=== PATIENT | male | born 1990 | race African-American/Black ===

== ENCOUNTER 2019-02-15 22:15 | Observation (INO) ==
[2019-02-15] MEDS ORDERED: KETOROLAC 30 MG/1 ML VIAL IV STA (22:41)
[2019-02-15 23:10] LABS: Basophils % 0.2 % (0.0-0.8); Eosinophils # 0.1 10*3/uL (0.0-0.87); Eosinophils % 0.8 % (0.00-10.9); Hemoglobin 13.6 GM/DL (14.0-18.0); Immature Granulocytes % 0.4 %; Immature Granulocytes Absolute 0.04 #; Lymphocytes # 3.1 10*3/uL (1.4-4.0); Lymphocytes % 28.9 % (21.2-54.2); Mean Corpuscular HGB Conc 33.2 GM/DL (32-36); Mean Corpuscular Volume 92.6 FL (87-102); Mean Platelet Volume 10.6 FL (9.6-12.0); Monocytes % 9.5 % (1.7-12.7); Neutrophils % 60.2 % (38.7-73.9); Platelet Count 176 T/CUMM (130-400); Red Blood Count 4.43 MC/CUMM (3.8-5.5); Red Cell Distribution Width 12.8 % (9.3-17.3); White Blood Count 10.7 T/CUMM (4-12)
[2019-02-15 23:25] LABS: Alanine Aminotransferase 19 U/L (16-61); Albumin 3.4 G/DL (3.4-5.0); Alkaline Phosphatase 114 U/L (45-117); Aspartate Amino Transferase 14 U/L (0-37); Bilirubin,Total < 0.39 MG/DL (0.2-1.0); Blood Urea Nitrogen 13 MG/DL (7-18); Calcium 9.1 MG/DL (8.5-10.1); Estimated Glom Filtration Rate 105 ML/MIN; Glucose 79 MG/DL (74-106); Osmolality,Calculated 281.1 MOS/KG (273-304); Total Protein 7.4 G/DL (6.4-8.3)
[2019-02-16] MEDS ORDERED: VANCOMYCIN INJ 1,000 MG in SODIUM CHLORIDE 0.9% 250 ML IV STA (00:01)
[2019-02-16] MEDS ORDERED: ONDANSETRON 4 MG/2 ML VIAL IV PRN (00:01)
[2019-02-16] MEDS ORDERED: CEFEPIME 2,000 MG in SODIUM CHLORIDE 0.9% 100 ML IV STA ×2 (00:03)
[2019-02-16] MEDS: DEXTROSE 5% LACTATED RINGERS 1,000 ML IV SCH ×3 (02:00→21:14)
[2019-02-16] MEDS ORDERED: VANCOMYCIN INJ 1,250 MG in SODIUM CHLORIDE 0.9% 250 ML IV SCH (07:30)
[2019-02-16] MEDS: MORPHINE 4 MG/1 ML VIAL IV PRN ×3 (08:28→23:02)
[2019-02-16] MEDS: PIPERACILLIN/TAZOBACTAM 3,375 MG in SODIUM CHLORIDE 0.9% 100 ML IV SCH ×2 (08:29→17:44)
[2019-02-16] MEDS ORDERED: VANCOMYCIN INJ 1,750 MG in SODIUM CHLORIDE 0.9% 500 ML IV ONE ×2 (08:30→09:00)
[2019-02-16] MEDS: PANTOPRAZOLE 40 MG VIAL IV SCH (08:57)
[2019-02-16 09:03] LABS: HIV Antigen/Antibody Result Nonreactive (Nonreactive)
[2019-02-16 17:14] LABS: Hepatitis B Core IgM Quant 0.11 Index; Hepatitis B Surface Ag Quant < 0.10 Index; Hepatitis B Surface Ag Result Negative (Negative); Hepatitis C Virus Ab Quant < 0.02 Index; Hepatitis C Virus Ab Result Negative (Negative)
[2019-02-17] MEDS: PIPERACILLIN/TAZOBACTAM 3,375 MG in SODIUM CHLORIDE 0.9% 100 ML IV SCH ×2 (00:59→13:27)
[2019-02-17] MEDS: DEXTROSE 5% LACTATED RINGERS 1,000 ML IV SCH ×2 (03:12→11:16)
[2019-02-17 05:07] LABS: Basophils % 0.1 % (0.0-0.8); Eosinophils # 0.1 10*3/uL (0.0-0.87); Eosinophils % 0.6 % (0.00-10.9); Hematocrit 37.7 VOL% (42.0-52.0); Hemoglobin 12.5 GM/DL (14.0-18.0); Immature Granulocytes % 0.4 %; Immature Granulocytes Absolute 0.04 #; Lymphocytes # 2.2 10*3/uL (1.4-4.0); Lymphocytes % 19.9 % (21.2-54.2); Mean Corpuscular HGB Conc 33.2 GM/DL (32-36); Mean Platelet Volume 11.2 FL (9.6-12.0); Monocytes % 10.6 % (1.7-12.7); Neutrophils % 68.4 % (38.7-73.9); Platelet Count 174 T/CUMM (130-400); Red Blood Count 4.19 MC/CUMM (3.8-5.5); Red Cell Distribution Width 12.8 % (9.3-17.3); White Blood Count 11.1 T/CUMM (4-12)
[2019-02-17 05:44] LABS: Calcium 8.6 MG/DL (8.5-10.1); Osmolality,Calculated 278.3 MOS/KG (273-304)
[2019-02-17 07:08] LABS: Sedimentation Rate-Westergren 49 MM/HR (0-15)
[2019-02-17] MEDS: PANTOPRAZOLE 40 MG VIAL IV SCH (08:37)
[2019-02-17] MEDS: VANCOMYCIN INJ 1,500 MG in SODIUM CHLORIDE 0.9% 500 ML IV SCH ×2 (08:37→20:35)
[2019-02-17] MEDS: MORPHINE 4 MG/1 ML VIAL IV PRN (13:27)
[2019-02-18] MEDS: PIPERACILLIN/TAZOBACTAM 3,375 MG in SODIUM CHLORIDE 0.9% 100 ML IV SCH ×2 (01:47→14:15)
[2019-02-18] MEDS: DEXTROSE 5% LACTATED RINGERS 1,000 ML IV SCH ×3 (01:47→10:21)
[2019-02-18] MEDS ORDERED: LIDOCAINE 1%/EPI INJ 20 ML VIAL ONE (07:37)
[2019-02-18] MEDS ORDERED: BUPIVACAINE 0.5% /EPI 10 ML VIAL ONE (07:37)
[2019-02-18] MEDS: PANTOPRAZOLE 40 MG VIAL IV SCH (09:00)
[2019-02-18] MEDS ORDERED: HYDROmorphone 2 MG/1 ML VIAL ONE (09:17)
[2019-02-18] MEDS: HYDROmorphone 2 MG/1 ML VIAL IV PRN ×4 (09:20→09:35)
[2019-02-18] MEDS ORDERED: PROPOFOL 200 MG/20 ML VIAL IV ONE (09:50)
[2019-02-18] MEDS ORDERED: fentaNYL 100 MCG/2 ML VIAL ONE (09:50)
[2019-02-18] MEDS ORDERED: MIDAZOLAM 2 MG/2 ML VIAL ONE (09:50)
[2019-02-18] MEDS ORDERED: LIDOCAINE 2% 5 ML VIAL ONE (09:50)
[2019-02-18] MEDS: VANCOMYCIN INJ 1,500 MG in SODIUM CHLORIDE 0.9% 500 ML IV SCH ×2 (10:00→22:58)
[2019-02-18] MEDS: MORPHINE 4 MG/1 ML VIAL IV PRN (20:21)
[2019-02-19] MEDS: PIPERACILLIN/TAZOBACTAM 3,375 MG in SODIUM CHLORIDE 0.9% 100 ML IV SCH ×2 (03:33→05:14)
[2019-02-19 07:47] VITALS: BP 148/94
[2019-02-19] MEDS: PANTOPRAZOLE 40 MG VIAL IV SCH (08:29)
[2019-02-19] MEDS ORDERED: SULFAMETHOX/TRIMETHOPRIM 800-160 MG TABLET PO SCH (10:30)
[2019-02-19] MEDS: VANCOMYCIN INJ 1,500 MG in SODIUM CHLORIDE 0.9% 500 ML IV SCH (11:39)
== END 2019-02-19 12:00 | disposition home or self-care (01) ==
LOC: N.ED 22:15 → N.EDINP 22:15 → N.3E 02-16 00:27
PROVIDERS: ADMIT Student in an Organized Health Care Education/Training Program; ATTEND Student in an Organized Health Care Education/Training Program

== ENCOUNTER 2021-09-10 19:24 | Inpatient (IN) ==
[2021-09-10 19:56] LABS: Basophils % 0.1 % (0.0-0.8); Eosinophils # 0.2 10*3/uL (0.0-0.87); Eosinophils % 1.9 % (0.00-10.9); Hematocrit 32.8 VOL% (42.0-52.0); Hemoglobin 10.6 GM/DL (14.0-18.0); Immature Granulocytes Absolute 0.34 #; Lymphocytes # 1.3 10*3/uL (1.4-4.0); Lymphocytes % 15.4 % (21.2-54.2); Mean Corpuscular HGB Conc 32.3 GM/DL (32-36); Mean Corpuscular Volume 90.9 FL (87-102); Mean Platelet Volume 10.4 FL (9.6-12.0); Monocytes # 0.7 10*3/uL (0.11-0.8); Monocytes % 8.3 % (1.7-12.7); Neutrophils % 70.3 % (38.7-73.9); Platelet Count 263 T/CUMM (130-400); Red Blood Count 3.61 MC/CUMM (3.8-5.5); Red Cell Distribution Width 14.5 % (9.3-17.3); White Blood Count 8.4 T/CUMM (4-12)
[2021-09-10 20:16] LABS: Alanine Aminotransferase 38 U/L (16-61); Albumin 1.6 G/DL (3.4-5.0); Alkaline Phosphatase 313 U/L (45-117); Aspartate Amino Transferase 67 U/L (0-37); Bilirubin,Total < 0.39 MG/DL (0.20-1.00); Blood Urea Nitrogen 21 MG/DL (7-18); Carbon Dioxide 24 MMOL/L (21-32); Chloride 109 MMOL/L (98-107); Glucose 83 MG/DL (74-106); Osmolality,Calculated 278.5 MOS/KG (273-304); Potassium 5.1 MMOL/L (3.5-5.1); Sodium 139 MMOL/L (136-145)
[2021-09-10] MEDS ORDERED: ONDANSETRON 4 MG/2 ML VIAL IV STA (23:11)
[2021-09-10] MEDS ORDERED: SODIUM CHLORIDE 0.9% 1,000 ML IV STA (23:11)
[2021-09-11 00:04] LABS: Hepatitis B Core IgM Quant 0.06 Index; Hepatitis B Surface Ag Quant < 0.10 Index; Hepatitis B Surface Ag Result Non-Reactive (NonReactive); Hepatitis C Virus Ab Quant 0.06 Index; Hepatitis C Virus Ab Result Non-Reactive (NonReactive)
[2021-09-11] MEDS ORDERED: SIMETHICONE CHEW 125 MG TABLET PO PRN (00:39)
[2021-09-11] MEDS ORDERED: ONDANSETRON 4 MG/2 ML VIAL IV PRN (00:39)
[2021-09-11] MEDS ORDERED: GLUCAGON 1 MG VIAL IM PRN (00:39)
[2021-09-11] MEDS ORDERED: ACETAMINOPHEN 325 MG TABLET PO PRN (00:39)
[2021-09-11] MEDS ORDERED: DEXTROSE 10% 250 ML BAG IV PRN (01:16)
[2021-09-11] MEDS: PANTOPRAZOLE 40 MG VIAL IV SCH ×2 (03:57→10:44)
[2021-09-11] MEDS: SODIUM CHLORIDE 0.9% 1,000 ML IV SCH ×2 (03:57→16:23)
[2021-09-11 04:11] LABS: Basophils % 0.1 % (0.0-0.8); Eosinophils # 0.1 10*3/uL (0.0-0.87); Eosinophils % 1.2 % (0.00-10.9); Hematocrit 28.9 VOL% (42.0-52.0); Hemoglobin 9.3 GM/DL (14.0-18.0); Immature Granulocytes % 3.5 %; Immature Granulocytes Absolute 0.29 #; Lymphocytes # 1.5 10*3/uL (1.4-4.0); Lymphocytes % 17.7 % (21.2-54.2); Mean Corpuscular HGB Conc 32.2 GM/DL (32-36); Mean Corpuscular Volume 90.3 FL (87-102); Mean Platelet Volume 10.3 FL (9.6-12.0); Monocytes # 0.5 10*3/uL (0.11-0.8); Neutrophils % 71.5 % (38.7-73.9); Platelet Count 238 T/CUMM (130-400); Red Cell Distribution Width 14.6 % (9.3-17.3); White Blood Count 8.4 T/CUMM (4-12)
[2021-09-11 04:32] LABS: Eosinophils 1 % (0-10); Lymphocytes 12 % (20-55); Platelet Estimate Normal; Total Cells Counted 100
[2021-09-11 04:36] LABS: Calcium 7.9 MG/DL (8.5-10.1); Osmolality,Calculated 280.4 MOS/KG (273-304); Potassium 4.4 MMOL/L (3.5-5.1); Thyroid Stimulating Hormone 2.03 uIU/ml (0.358-3.74)
[2021-09-11 06:39] LABS: Bacteria,Urine Occasional /HPF (Few); Bilirubin,Urine Negative (Negative); Blood, Urine Trace mg/dL (Negative); Glucose,Urine (UA) Negative (Negative); Ketones,Urine Negative (Negative); Mucus,Urine Occasional /LPF (Occasional); Nitrite,Urine Negative (Negative); Protein,Urine >=300 mg/dL (Negative); RBC,Urine 1 /HPF (0-4); Squamous Epithelial Cell,Urine Occasional /HPF (0-10); Urine Appearance Clear (Clear); Urine Color Yellow (Yellow); Urine Specific Gravity 1.025 (1.001-1.035); Urine Urobilinogen 0.2 eU/dL (<2.0); Urine pH 7.5 (4.5-8.0)
[2021-09-11] MEDS ORDERED: ENOXAPARIN 40 MG/0.4 ML SYRINGE SUBCUT SCH (09:00)
[2021-09-11] MEDS: guaiFENesin/DM ER 600-30 MG TABLET PO SCH ×2 (10:44→22:40)
[2021-09-11] MEDS ORDERED: LIDOCAINE 100 MG/5 ML SYRINGE ONE (14:29)
[2021-09-11] MEDS ORDERED: propofoL 200 MG/20 ML VIAL IV ONE (14:29)
[2021-09-11] MEDS ORDERED: FLUCONAZOLE INJ 200 MG/100 ML PREMIX IV SCH (15:00)
[2021-09-11] MEDS: PANTOPRAZOLE INJ 200 MG in SODIUM CHLORIDE 0.9% 250 ML IV SCH (16:23)
[2021-09-11] MEDS: METOCLOPRAMIDE 10 MG/2 ML VIAL IV SCH (17:28)
[2021-09-11] MEDS: MORPHINE 2 MG/1 ML SYRINGE IV PRN (22:30)
[2021-09-11] MEDS: COLESTIPOL 1 GM TABLET PO SCH (22:40)
[2021-09-12] MEDS: SODIUM CHLORIDE 0.9% 1,000 ML IV SCH ×4 (00:01→23:14)
[2021-09-12] MEDS: METOCLOPRAMIDE 10 MG/2 ML VIAL IV SCH ×5 (00:16→23:14)
[2021-09-12 06:02] LABS: Basophils % 0.1 % (0.0-0.8); Eosinophils % 0.3 % (0.00-10.9); Hematocrit 27.6 VOL% (42.0-52.0); Immature Granulocytes % 4.3 %; Immature Granulocytes Absolute 0.37 #; Lymphocytes # 1.4 10*3/uL (1.4-4.0); Lymphocytes % 16.1 % (21.2-54.2); Mean Corpuscular HGB Conc 32.6 GM/DL (32-36); Mean Corpuscular Volume 90.5 FL (87-102); Mean Platelet Volume 10.8 FL (9.6-12.0); Monocytes # 0.8 10*3/uL (0.11-0.8); Monocytes % 8.9 % (1.7-12.7); Neutrophils % 70.3 % (38.7-73.9); Platelet Count 235 T/CUMM (130-400); Red Blood Count 3.05 MC/CUMM (3.8-5.5); Red Cell Distribution Width 14.5 % (9.3-17.3); White Blood Count 8.6 T/CUMM (4-12)
[2021-09-12 06:09] LABS: Alanine Aminotransferase 25 U/L (16-61); Albumin 1.1 G/DL (3.4-5.0); Alkaline Phosphatase 228 U/L (45-117); Aspartate Amino Transferase 39 U/L (0-37); Bilirubin,Total < 0.39 MG/DL (0.20-1.00); Blood Urea Nitrogen 23 MG/DL (7-18); Calcium 7.7 MG/DL (8.5-10.1); Carbon Dioxide 23 MMOL/L (21-32); Chloride 110 MMOL/L (98-107); Glucose 99 MG/DL (74-106); Osmolality,Calculated 278.7 MOS/KG (273-304); Potassium 4.3 MMOL/L (3.5-5.1); Sodium 138 MMOL/L (136-145); Total Protein 5.4 G/DL (6.4-8.2)
[2021-09-12 06:14] LABS: Lymphocytes 11 % (20-55); Platelet Estimate Normal; Total Cells Counted 100
[2021-09-12] MEDS: COLESTIPOL 1 GM TABLET PO SCH ×2 (10:17→21:21)
[2021-09-12] MEDS: cefTRIAXone 2,000 MG in SODIUM CHLORIDE 0.9% 100 ML IV SCH (10:17)
[2021-09-12] MEDS: oxyCODONE/ACETAMINOPHEN 5-325 MG TABLET PO PRN (10:17)
[2021-09-12] MEDS: guaiFENesin/DM ER 600-30 MG TABLET PO SCH ×2 (10:18→21:21)
[2021-09-12] MEDS ORDERED: FLUCONAZOLE INJ 400 MG/200 ML PREMIX IV SCH (13:00)
[2021-09-12] MEDS: FLUCONAZOLE INJ 400 MG/200 ML PREMIX IV SCH (13:35)
[2021-09-12] MEDS: PANTOPRAZOLE INJ 200 MG in SODIUM CHLORIDE 0.9% 250 ML IV SCH (17:28)
[2021-09-13 04:49] LABS: Eosinophils # 0.1 10*3/uL (0.0-0.87); Eosinophils % 0.8 % (0.00-10.9); Hematocrit 22.6 VOL% (42.0-52.0); Hemoglobin 7.3 GM/DL (14.0-18.0); Immature Granulocytes % 2.9 %; Immature Granulocytes Absolute 0.18 #; Lymphocytes % 15.5 % (21.2-54.2); Mean Corpuscular HGB Conc 32.3 GM/DL (32-36); Mean Corpuscular Volume 90.4 FL (87-102); Mean Platelet Volume 10.9 FL (9.6-12.0); Monocytes # 0.7 10*3/uL (0.11-0.8); Monocytes % 10.6 % (1.7-12.7); Neutrophils % 70.2 % (38.7-73.9); Platelet Count 199 T/CUMM (130-400); White Blood Count 6.3 T/CUMM (4-12)
[2021-09-13] MEDS: METOCLOPRAMIDE 10 MG/2 ML VIAL IV SCH ×2 (05:06→12:18)
[2021-09-13 05:14] LABS: Alanine Aminotransferase 22 U/L (16-61); Alkaline Phosphatase 179 U/L (45-117); Aspartate Amino Transferase 39 U/L (0-37); Bilirubin,Total < 0.39 MG/DL (0.20-1.00); Blood Urea Nitrogen 31 MG/DL (7-18); Calcium 7.9 MG/DL (8.5-10.1); Carbon Dioxide 22 MMOL/L (21-32); Chloride 107 MMOL/L (98-107); Glucose 81 MG/DL (74-106); Osmolality,Calculated 273.2 MOS/KG (273-304); Potassium 4.5 MMOL/L (3.5-5.1); Sodium 134 MMOL/L (136-145); Total Protein 5.1 G/DL (6.4-8.2)
[2021-09-13 05:40] LABS: Anisocytosis 1+; Band Neutrophils 21 % (0-10); Lymphocytes 11 % (20-55); Macrocytosis Slight; Ovalocytes Few; Platelet Estimate Normal; Total Cells Counted 100
[2021-09-13] MEDS: COLESTIPOL 1 GM TABLET PO SCH (09:13)
[2021-09-13] MEDS: guaiFENesin/DM ER 600-30 MG TABLET PO SCH ×2 (09:13→21:02)
[2021-09-13] MEDS: oxyCODONE/ACETAMINOPHEN 5-325 MG TABLET PO PRN ×2 (09:13→21:05)
[2021-09-13] MEDS: SODIUM CHLORIDE 0.9% 1,000 ML IV SCH ×2 (09:57→15:34)
[2021-09-13] MEDS: cefTRIAXone 2,000 MG in SODIUM CHLORIDE 0.9% 100 ML IV SCH (12:17)
[2021-09-13] MEDS: FLUCONAZOLE INJ 400 MG/200 ML PREMIX IV SCH (14:52)
[2021-09-13] MEDS: METOCLOPRAMIDE 10 MG/10 ML UDCUP PO SCH ×2 (16:44→21:02)
[2021-09-13] MEDS: PANTOPRAZOLE 40 MG TABLET PO SCH (18:04)
[2021-09-14 04:48] LABS: Basophils % 0.2 % (0.0-0.8); Eosinophils # 0.1 10*3/uL (0.0-0.87); Eosinophils % 2.5 % (0.00-10.9); Hematocrit 22.1 VOL% (42.0-52.0); Hemoglobin 7.1 GM/DL (14.0-18.0); Immature Granulocytes % 2.5 %; Immature Granulocytes Absolute 0.13 #; Lymphocytes % 19.4 % (21.2-54.2); Mean Corpuscular HGB Conc 32.1 GM/DL (32-36); Mean Corpuscular Volume 90.9 FL (87-102); Mean Platelet Volume 10.6 FL (9.6-12.0); Monocytes # 0.7 10*3/uL (0.11-0.8); Monocytes % 12.6 % (1.7-12.7); Neutrophils % 62.8 % (38.7-73.9); Platelet Count 214 T/CUMM (130-400); Red Blood Count 2.43 MC/CUMM (3.8-5.5); Red Cell Distribution Width 13.8 % (9.3-17.3); White Blood Count 5.2 T/CUMM (4-12)
[2021-09-14] MEDS ORDERED: SODIUM CHLORIDE 0.9% 1,000 ML IV PRN (07:06)
[2021-09-14] MEDS: METOCLOPRAMIDE 10 MG/10 ML UDCUP PO SCH ×4 (07:08→22:21)
[2021-09-14] MEDS: PANTOPRAZOLE 40 MG TABLET PO SCH ×2 (07:08→20:03)
[2021-09-14] MEDS: oxyCODONE/ACETAMINOPHEN 5-325 MG TABLET PO PRN ×2 (07:09→17:45)
[2021-09-14] MEDS ORDERED: FLUCONAZOLE 100 MG TABLET PO SCH (09:00)
[2021-09-14] MEDS: guaiFENesin/DM ER 600-30 MG TABLET PO SCH ×2 (09:41→22:22)
[2021-09-14] MEDS: FLUCONAZOLE INJ 400 MG/200 ML PREMIX IV SCH (09:42)
[2021-09-14] MEDS: SODIUM CHLORIDE 0.9% 1,000 ML IV SCH ×2 (09:43→22:50)
[2021-09-14 15:19] LABS: Folate 7.21 NG/ML (5.38-24.0)
[2021-09-14 18:35] LABS: % Iron Saturation 21.3 % (18-50)
[2021-09-15] MEDS: oxyCODONE/ACETAMINOPHEN 5-325 MG TABLET PO PRN ×3 (01:13→19:08)
[2021-09-15 05:56] LABS: Basophils % 0.2 % (0.0-0.8); Eosinophils # 0.1 10*3/uL (0.0-0.87); Eosinophils % 2.7 % (0.00-10.9); Hematocrit 27.8 VOL% (42.0-52.0); Hemoglobin 9.2 GM/DL (14.0-18.0); Immature Granulocytes % 3.7 %; Immature Granulocytes Absolute 0.19 #; Lymphocytes # 0.8 10*3/uL (1.4-4.0); Lymphocytes % 15.5 % (21.2-54.2); Mean Corpuscular HGB Conc 33.1 GM/DL (32-36); Mean Corpuscular Volume 88.8 FL (87-102); Mean Platelet Volume 10.4 FL (9.6-12.0); Monocytes # 0.4 10*3/uL (0.11-0.8); Monocytes % 8.3 % (1.7-12.7); Neutrophils % 69.6 % (38.7-73.9); Platelet Count 228 T/CUMM (130-400); Red Blood Count 3.13 MC/CUMM (3.8-5.5); Red Cell Distribution Width 14.3 % (9.3-17.3); White Blood Count 5.2 T/CUMM (4-12)
[2021-09-15 06:05] LABS: Calcium 8.2 MG/DL (8.5-10.1); Osmolality,Calculated 274.8 MOS/KG (273-304); Potassium 4.1 MMOL/L (3.5-5.1)
[2021-09-15 06:24] LABS: Eosinophils 1 % (0-10); Lymphocytes 12 % (20-55); Platelet Estimate Adequate; Total Cells Counted 100
[2021-09-15] MEDS: SODIUM CHLORIDE 0.9% 1,000 ML IV SCH ×3 (06:51→18:32)
[2021-09-15] MEDS: PANTOPRAZOLE 40 MG TABLET PO SCH ×2 (07:01→18:20)
[2021-09-15] MEDS: METOCLOPRAMIDE 10 MG/10 ML UDCUP PO SCH ×4 (07:01→20:28)
[2021-09-15] MEDS: guaiFENesin/DM ER 600-30 MG TABLET PO SCH ×2 (09:25→20:30)
[2021-09-15] MEDS: FLUCONAZOLE INJ 400 MG/200 ML PREMIX IV SCH (09:27)
[2021-09-15] MEDS: CHOLECALCIFEROL 5,000 UNIT TABLET PO SCH (12:00)
[2021-09-15] MEDS ORDERED: POLYETHYLENE GLYCOL POWDER 17 GM PACK PO PRN (12:55)
[2021-09-15] MEDS: MORPHINE 2 MG/1 ML SYRINGE IV PRN (21:47)
[2021-09-15 21:48] LABS: Total Protein 24 Hr Ur Result 7854 MG/24HR (0-149.1); Total Volume,Urine 2550 ML (400-2000)
[2021-09-16] MEDS: oxyCODONE/ACETAMINOPHEN 5-325 MG TABLET PO PRN ×4 (02:13→23:02)
[2021-09-16] MEDS: METOCLOPRAMIDE 10 MG/10 ML UDCUP PO SCH ×4 (06:58→20:08)
[2021-09-16] MEDS: PANTOPRAZOLE 40 MG TABLET PO SCH ×2 (06:58→20:08)
[2021-09-16] MEDS: SODIUM CHLORIDE 0.9% 1,000 ML IV SCH ×3 (07:07→20:10)
[2021-09-16] MEDS: FERRIC GLUCONATE COMPLEX 125 MG in SODIUM CHLORIDE 0.9% 100 ML IV SCH (08:53)
[2021-09-16] MEDS: FLUCONAZOLE INJ 400 MG/200 ML PREMIX IV SCH (08:54)
[2021-09-16] MEDS: guaiFENesin/DM ER 600-30 MG TABLET PO SCH ×2 (08:54→20:08)
[2021-09-16] MEDS: CHOLECALCIFEROL 5,000 UNIT TABLET PO SCH (08:54)
[2021-09-16 12:06] LABS: Mitochondrial Antibody (M2) <0.1 U
[2021-09-16 20:03] LABS: % CD4 (T Cells) 7 % (32-64); % CD8 (T Cells) 73 % (15-40); 4/8 Ratio 0.1 (>=0.9)
[2021-09-16] MEDS: AMOXICILLIN 500 MG CAPSULE PO SCH (20:08)
[2021-09-16] MEDS: CLARITHROMYCIN 500 MG TABLET PO SCH (20:08)
[2021-09-17] MEDS: SODIUM CHLORIDE 0.9% 1,000 ML IV SCH (03:11)
[2021-09-17] MEDS: oxyCODONE/ACETAMINOPHEN 5-325 MG TABLET PO PRN ×2 (04:34→10:52)
[2021-09-17 04:46] LABS: Basophils % 0.2 % (0.0-0.8); Eosinophils # 0.1 10*3/uL (0.0-0.87); Eosinophils % 1.7 % (0.00-10.9); Hematocrit 28.4 VOL% (42.0-52.0); Hemoglobin 9.3 GM/DL (14.0-18.0); Immature Granulocytes % 5.3 %; Immature Granulocytes Absolute 0.28 #; Lymphocytes % 19.8 % (21.2-54.2); Mean Corpuscular HGB Conc 32.7 GM/DL (32-36); Mean Corpuscular Volume 90.4 FL (87-102); Mean Platelet Volume 10.4 FL (9.6-12.0); Monocytes # 0.8 10*3/uL (0.11-0.8); Monocytes % 15.8 % (1.7-12.7); Neutrophils % 57.2 % (38.7-73.9); Platelet Count 213 T/CUMM (130-400); Red Blood Count 3.14 MC/CUMM (3.8-5.5); Red Cell Distribution Width 14.5 % (9.3-17.3); White Blood Count 5.3 T/CUMM (4-12)
[2021-09-17 05:13] LABS: Eosinophils 2 % (0-10); Lymphocytes 15 % (20-55); Total Cells Counted 100
[2021-09-17 05:14] LABS: Platelet Estimate Normal
[2021-09-17] MEDS: FERRIC GLUCONATE COMPLEX 125 MG in SODIUM CHLORIDE 0.9% 100 ML IV SCH (08:25)
[2021-09-17] MEDS: FLUCONAZOLE INJ 400 MG/200 ML PREMIX IV SCH (08:25)
[2021-09-17] MEDS: AMOXICILLIN 500 MG CAPSULE PO SCH (08:26)
[2021-09-17] MEDS: PANTOPRAZOLE 40 MG TABLET PO SCH (08:26)
[2021-09-17] MEDS: METOCLOPRAMIDE 10 MG/10 ML UDCUP PO SCH ×2 (08:26→12:46)
[2021-09-17] MEDS: guaiFENesin/DM ER 600-30 MG TABLET PO SCH (08:26)
[2021-09-17] MEDS: CHOLECALCIFEROL 5,000 UNIT TABLET PO SCH (08:26)
[2021-09-17] MEDS: CLARITHROMYCIN 500 MG TABLET PO SCH (08:26)
[2021-09-17] MEDS: MORPHINE 2 MG/1 ML SYRINGE IV PRN (08:30)
[2021-09-17 12:41] VITALS: BP 151/105
== END 2021-09-17 14:33 | disposition home or self-care (01) | DRG 893 ==
LOC: N.ED 19:24 → SUATTDRO 09-11 00:39 → N.EDINP 09-11 00:39 → N.5E 09-11 13:16
PROVIDERS: ADMIT Internal Medicine; ATTEND Internal Medicine

== ENCOUNTER 2021-09-19 08:36 | Inpatient (IN) ==
[2021-09-19] MEDS ORDERED: SODIUM CHLORIDE 0.9% 1,000 ML IV STA ×2 (09:11→11:30)
[2021-09-19 09:30] LABS: Basophils % 0.2 % (0.0-0.8); Eosinophils # 0.1 10*3/uL (0.0-0.87); Eosinophils % 0.8 % (0.00-10.9); Hemoglobin 9.8 GM/DL (14.0-18.0); Immature Granulocytes % 6.3 %; Immature Granulocytes Absolute 0.39 #; Lymphocytes # 1.1 10*3/uL (1.4-4.0); Lymphocytes % 17.7 % (21.2-54.2); Mean Corpuscular HGB Conc 32.7 GM/DL (32-36); Mean Corpuscular Volume 90.1 FL (87-102); Mean Platelet Volume 9.8 FL (9.6-12.0); Monocytes # 0.4 10*3/uL (0.11-0.8); Monocytes % 6.9 % (1.7-12.7); Neutrophils % 68.1 % (38.7-73.9); Platelet Count 320 T/CUMM (130-400); Red Blood Count 3.33 MC/CUMM (3.8-5.5); Red Cell Distribution Width 14.7 % (9.3-17.3); White Blood Count 6.2 T/CUMM (4-12)
[2021-09-19] MEDS ORDERED: AZITHROMYCIN INJ 500 MG in SODIUM CHLORIDE 0.9% 250 ML IV STA (09:30)
[2021-09-19] MEDS ORDERED: HYDROmorphone 1 MG/1 ML SYRINGE IV STA ×2 (09:30→10:36)
[2021-09-19] MEDS ORDERED: ONDANSETRON 4 MG/2 ML VIAL IV ONE (09:30)
[2021-09-19] MEDS ORDERED: cefTRIAXone 1,000 MG in SODIUM CHLORIDE 0.9% 100 ML IV STA (09:30)
[2021-09-19 09:51] LABS: Alanine Aminotransferase 38 U/L (16-61); Albumin 1.1 G/DL (3.4-5.0); Alkaline Phosphatase 725 U/L (45-117); Aspartate Amino Transferase 51 U/L (0-37); Bilirubin,Total < 0.39 MG/DL (0.20-1.00); Blood Urea Nitrogen 22 MG/DL (7-18); Calcium 8.2 MG/DL (8.5-10.1); Carbon Dioxide 24 MMOL/L (21-32); Chloride 109 MMOL/L (98-107); Glucose 88 MG/DL (74-106); Osmolality,Calculated 276.7 MOS/KG (273-304); Sodium 138 MMOL/L (136-145); Total Protein 6.6 G/DL (6.4-8.2)
[2021-09-19 09:58] LABS: Band Neutrophils 2 % (0-10); Eosinophils 1 % (0-10); Lymphocytes 12 % (20-55); Total Cells Counted 100
[2021-09-19] MEDS ORDERED: ONDANSETRON 4 MG/2 ML VIAL IV STA (10:37)
[2021-09-19] MEDS ORDERED: ZALEPLON 5 MG CAPSULE PO PRN (11:24)
[2021-09-19] MEDS ORDERED: DOCUSATE SODIUM 100 MG CAPSULE PO PRN (11:24)
[2021-09-19] MEDS ORDERED: ALUMINUM/MAGNES/SIMETH MAX STR 30 ML UDCUP PO PRN (11:24)
[2021-09-19] MEDS ORDERED: guaiFENesin/DM ER 600-30 MG TABLET PO PRN (11:24)
[2021-09-19] MEDS ORDERED: ONDANSETRON 4 MG/2 ML VIAL IV PRN (11:24)
[2021-09-19] MEDS ORDERED: ACETAMINOPHEN 325 MG TABLET PO PRN (11:24)
[2021-09-19] MEDS ORDERED: diphenhydrAMINE CAP 25 MG CAPSULE PO PRN (11:24)
[2021-09-19] MEDS ORDERED: FLUCONAZOLE INJ 400 MG/200 ML PREMIX IV SCH (11:30)
[2021-09-19] MEDS: SODIUM CHLORIDE 0.9% 1,000 ML IV SCH ×2 (11:50→19:58)
[2021-09-19] MEDS ORDERED: FLUCONAZOLE INJ 400 MG/200 ML PREMIX IV ONE (12:00)
[2021-09-19 12:09] LABS: Hyaline Casts,Urine 1 /LPF (0-3); RBC,Urine 4 /HPF (0-4); Squamous Epithelial Cell,Urine Occasional /HPF (0-10)
[2021-09-19 12:10] LABS: Urine Appearance Clear (Clear); Urine Color Yellow (Yellow)
[2021-09-19 12:11] LABS: Bilirubin,Urine Negative (Negative); Blood, Urine Trace mg/dL (Negative); Glucose,Urine (UA) Negative (Negative); Ketones,Urine Negative (Negative); Nitrite,Urine Negative (Negative); Protein,Urine >=300 mg/dL (Negative); Urine Specific Gravity 1.025 (1.001-1.035)
[2021-09-19 12:14] LABS: Barbiturates Screen,Urine Negative (Negative); Benzodiazepines Screen,Urine Negative (Negative); Cannabinoid Screen,Urine Positive (Negative); Opiate Screen,Urine Positive (Negative); Phencyclidine Screen,Urine Negative (Negative)
[2021-09-19] MEDS: ENOXAPARIN 40 MG/0.4 ML SYRINGE SUBCUT SCH (12:50)
[2021-09-19] MEDS ORDERED: MAGNESIUM SULF RIDER 2 GM/50 ML PREMIX IV STA (12:58)
[2021-09-19] MEDS ORDERED: METOPROLOL TARTRATE 5 MG/5 ML VIAL IV STA (12:59)
[2021-09-19] MEDS: METOPROLOL TARTRATE 5 MG/5 ML VIAL IV PRN ×2 (13:07→16:30)
[2021-09-19] MEDS: ALBUTEROL/IPRATROPIUM 3 ML NEB RESP TX SCH ×2 (14:20→19:33)
[2021-09-19] MEDS: VANCOMYCIN INJ 1,000 MG in SODIUM CHLORIDE 0.9% 250 ML IV SCH (15:00)
[2021-09-19] MEDS ORDERED: CLORAZEPATE 3.75 MG TABLET PO PRN (15:29)
[2021-09-19] MEDS: PIPERACILLIN/TAZOBACTAM 3,375 MG in SODIUM CHLORIDE 0.9% 100 ML IV SCH ×2 (17:20→17:48)
[2021-09-19] MEDS ORDERED: hydrALAZINE 20 MG/1 ML VIAL IV STA (17:46)
[2021-09-19] MEDS: TRIMETH IV SCH (18:00)
[2021-09-19] MEDS: DEXTROSE 5% IV SCH (18:00)
[2021-09-19] MEDS: SULFAMETH IV SCH (18:00)
[2021-09-19] MEDS: MORPHINE 2 MG/1 ML SYRINGE IV PRN (19:12)
[2021-09-19] MEDS: PROMETHAZINE 25 MG TABLET PO PRN (19:12)
[2021-09-19] MEDS: oxyCODONE/ACETAMINOPHEN 5-325 MG TABLET PO PRN (21:06)
[2021-09-19] MEDS: MYLANTA/LIDO VISC/NYST 180 ML BOTTLE SWISH/SWAL SCH (21:29)
[2021-09-19] MEDS: guaiFENesin/DM ER 600-30 MG TABLET PO SCH (21:29)
[2021-09-19] MEDS: DOCUSATE SODIUM 100 MG CAPSULE PO SCH (21:29)
[2021-09-20] MEDS: SULFAMETH IV SCH ×4 (00:31→20:45)
[2021-09-20] MEDS: TRIMETH IV SCH ×4 (00:31→20:45)
[2021-09-20] MEDS: DEXTROSE 5% IV SCH ×4 (00:31→20:45)
[2021-09-20] MEDS: ALBUTEROL INHALER 18 GM INH SCH ×4 (01:40→22:06)
[2021-09-20] MEDS: PIPERACILLIN/TAZOBACTAM 3,375 MG in SODIUM CHLORIDE 0.9% 100 ML IV SCH ×3 (02:35→19:24)
[2021-09-20] MEDS: SODIUM CHLORIDE 0.9% 1,000 ML IV SCH ×3 (05:25→22:01)
[2021-09-20 06:27] LABS: Eosinophils % 0.5 % (0.00-10.9); Hematocrit 25.5 VOL% (42.0-52.0); Hemoglobin 8.2 GM/DL (14.0-18.0); Immature Granulocytes % 9.5 %; Immature Granulocytes Absolute 0.41 #; Lymphocytes # 0.9 10*3/uL (1.4-4.0); Mean Corpuscular HGB Conc 32.2 GM/DL (32-36); Mean Corpuscular Volume 90.1 FL (87-102); Mean Platelet Volume 9.5 FL (9.6-12.0); Monocytes # 0.5 10*3/uL (0.11-0.8); Monocytes % 12.5 % (1.7-12.7); Neutrophils % 56.5 % (38.7-73.9); Platelet Count 237 T/CUMM (130-400); Red Blood Count 2.83 MC/CUMM (3.8-5.5); Red Cell Distribution Width 14.7 % (9.3-17.3); White Blood Count 4.3 T/CUMM (4-12)
[2021-09-20 06:45] LABS: Alanine Aminotransferase 24 U/L (16-61); Albumin 0.8 G/DL (3.4-5.0); Alkaline Phosphatase 558 U/L (45-117); Aspartate Amino Transferase 36 U/L (0-37); Bilirubin,Total < 0.39 MG/DL (0.20-1.00); Blood Urea Nitrogen 22 MG/DL (7-18); Calcium 7.7 MG/DL (8.5-10.1); Carbon Dioxide 20 MMOL/L (21-32); Chloride 111 MMOL/L (98-107); Glucose 86 MG/DL (74-106); Osmolality,Calculated 276.7 MOS/KG (273-304); Potassium 4.3 MMOL/L (3.5-5.1); Sodium 138 MMOL/L (136-145)
[2021-09-20 06:53] LABS: Band Neutrophils 3 % (0-10); Lymphocytes 14 % (20-55); Metamyelocytes 1 %; Myelocytes 2 %; Total Cells Counted 100
[2021-09-20 06:55] LABS: Platelet Estimate Normal
[2021-09-20] MEDS ORDERED: PNEUMOCOCCAL VACCINE (13 VALENT) 0.5 ML SYRINGE IM ONE (09:00)
[2021-09-20] MEDS: POLYETHYLENE GLYCOL POWDER 17 GM PACK PO SCH (10:00)
[2021-09-20] MEDS: MYLANTA/LIDO VISC/NYST 180 ML BOTTLE SWISH/SWAL SCH ×4 (10:00→22:06)
[2021-09-20] MEDS: VANCOMYCIN INJ 1,000 MG in SODIUM CHLORIDE 0.9% 250 ML IV SCH (10:04)
[2021-09-20] MEDS: ENOXAPARIN 40 MG/0.4 ML SYRINGE SUBCUT SCH (10:06)
[2021-09-20] MEDS: guaiFENesin/DM ER 600-30 MG TABLET PO SCH ×2 (10:07→20:45)
[2021-09-20] MEDS: PANTOPRAZOLE 40 MG TABLET PO SCH (10:07)
[2021-09-20] MEDS: CHOLECALCIFEROL 5,000 UNIT TABLET PO SCH (10:08)
[2021-09-20] MEDS: DOCUSATE SODIUM 100 MG CAPSULE PO SCH ×2 (10:08→20:45)
[2021-09-20] MEDS: FLUCONAZOLE INJ 200 MG/100 ML PREMIX IV SCH (11:41)
[2021-09-20] MEDS: oxyCODONE/ACETAMINOPHEN 5-325 MG TABLET PO PRN ×2 (14:36→22:00)
[2021-09-21] MEDS: VANCOMYCIN INJ 1,000 MG in SODIUM CHLORIDE 0.9% 250 ML IV SCH (00:10)
[2021-09-21] MEDS: ALBUTEROL INHALER 18 GM INH SCH ×2 (00:30→06:30)
[2021-09-21] MEDS: PIPERACILLIN/TAZOBACTAM 3,375 MG in SODIUM CHLORIDE 0.9% 100 ML IV SCH ×3 (00:40→18:12)
[2021-09-21] MEDS: DEXTROSE 5% IV SCH (05:00)
[2021-09-21] MEDS: TRIMETH IV SCH (05:00)
[2021-09-21] MEDS: SULFAMETH IV SCH (05:00)
[2021-09-21 06:36] LABS: Basophils % 0.2 % (0.0-0.8); Eosinophils # 0.1 10*3/uL (0.0-0.87); Eosinophils % 0.9 % (0.00-10.9); Hematocrit 24.7 VOL% (42.0-52.0); Hemoglobin 7.9 GM/DL (14.0-18.0); Immature Granulocytes % 7.5 %; Lymphocytes % 18.1 % (21.2-54.2); Mean Corpuscular Volume 91.1 FL (87-102); Mean Platelet Volume 9.8 FL (9.6-12.0); Monocytes # 0.5 10*3/uL (0.11-0.8); Monocytes % 9.1 % (1.7-12.7); Neutrophils % 64.2 % (38.7-73.9); Platelet Count 250 T/CUMM (130-400); Red Blood Count 2.71 MC/CUMM (3.8-5.5); Red Cell Distribution Width 14.8 % (9.3-17.3); White Blood Count 5.4 T/CUMM (4-12)
[2021-09-21 07:05] LABS: Calcium 7.8 MG/DL (8.5-10.1); Eosinophils 1 % (0-10); Lymphocytes 13 % (20-55); Osmolality,Calculated 278.5 MOS/KG (273-304); Platelet Estimate Adequate; Potassium 4.5 MMOL/L (3.5-5.1); Total Cells Counted 100
[2021-09-21] MEDS: SODIUM CHLORIDE 0.9% 1,000 ML IV SCH ×2 (07:13→11:58)
[2021-09-21 08:10] LABS: INR 0.9; PT Patient Result 10.3 SECS (10.5-12.0)
[2021-09-21] MEDS: oxyCODONE/ACETAMINOPHEN 5-325 MG TABLET PO PRN ×2 (08:55→18:35)
[2021-09-21] MEDS: FLUCONAZOLE INJ 200 MG/100 ML PREMIX IV SCH (08:55)
[2021-09-21] MEDS: PANTOPRAZOLE 40 MG TABLET PO SCH ×2 (08:56→22:37)
[2021-09-21] MEDS: CHOLECALCIFEROL 5,000 UNIT TABLET PO SCH (08:57)
[2021-09-21] MEDS: guaiFENesin/DM ER 600-30 MG TABLET PO SCH ×2 (08:57→22:36)
[2021-09-21] MEDS: DOCUSATE SODIUM 100 MG CAPSULE PO SCH ×2 (08:57→22:36)
[2021-09-21] MEDS: MYLANTA/LIDO VISC/NYST 180 ML BOTTLE SWISH/SWAL SCH ×3 (11:47→18:06)
[2021-09-21] MEDS: ENOXAPARIN 40 MG/0.4 ML SYRINGE SUBCUT SCH (11:47)
[2021-09-21] MEDS: POLYETHYLENE GLYCOL POWDER 17 GM PACK PO SCH (11:47)
[2021-09-21] MEDS: SULFAMETHOX/TRIMETHOPRIM 800-160 MG TABLET PO SCH ×3 (12:05→17:09)
[2021-09-21] MEDS: METOPROLOL TARTRATE 5 MG/5 ML VIAL IV PRN (15:47)
[2021-09-21] MEDS: ASCORBIC ACID 500 MG TABLET PO SCH (22:37)
[2021-09-22] MEDS: MYLANTA/LIDO VISC/NYST 180 ML BOTTLE SWISH/SWAL SCH ×4 (00:22→20:48)
[2021-09-22] MEDS: ALBUTEROL INHALER 18 GM INH SCH ×4 (00:30→20:27)
[2021-09-22] MEDS: PIPERACILLIN/TAZOBACTAM 3,375 MG in SODIUM CHLORIDE 0.9% 100 ML IV SCH (00:35)
[2021-09-22] MEDS: SODIUM CHLORIDE 0.9% 1,000 ML IV SCH ×6 (00:44→21:29)
[2021-09-22] MEDS: oxyCODONE/ACETAMINOPHEN 5-325 MG TABLET PO PRN (06:14)
[2021-09-22 06:20] LABS: Basophils % 0.2 % (0.0-0.8); Eosinophils % 0.7 % (0.00-10.9); Hematocrit 26.3 VOL% (42.0-52.0); Hemoglobin 8.5 GM/DL (14.0-18.0); Immature Granulocytes % 4.1 %; Immature Granulocytes Absolute 0.23 #; Lymphocytes # 0.8 10*3/uL (1.4-4.0); Mean Corpuscular HGB Conc 32.3 GM/DL (32-36); Mean Corpuscular Volume 90.1 FL (87-102); Mean Platelet Volume 9.5 FL (9.6-12.0); Monocytes # 0.6 10*3/uL (0.11-0.8); Monocytes % 10.1 % (1.7-12.7); Neutrophils % 70.9 % (38.7-73.9); Platelet Count 279 T/CUMM (130-400); Red Blood Count 2.92 MC/CUMM (3.8-5.5); Red Cell Distribution Width 14.6 % (9.3-17.3); White Blood Count 5.7 T/CUMM (4-12)
[2021-09-22 06:55] LABS: Alanine Aminotransferase 26 U/L (16-61); Albumin 0.9 G/DL (3.4-5.0); Alkaline Phosphatase 526 U/L (45-117); Aspartate Amino Transferase 40 U/L (0-37); Bilirubin,Total < 0.39 MG/DL (0.20-1.00); Blood Urea Nitrogen 17 MG/DL (7-18); Carbon Dioxide 20 MMOL/L (21-32); Chloride 110 MMOL/L (98-107); Glucose 80 MG/DL (74-106); Osmolality,Calculated 275.7 MOS/KG (273-304); Potassium 4.9 MMOL/L (3.5-5.1); Sodium 138 MMOL/L (136-145); Total Protein 5.6 G/DL (6.4-8.2)
[2021-09-22] MEDS ORDERED: MAGNESIUM SULF RIDER 2 GM/50 ML PREMIX IV ONE (08:30)
[2021-09-22] MEDS: ASCORBIC ACID 500 MG TABLET PO SCH ×2 (08:44→20:26)
[2021-09-22] MEDS: SULFAMETHOX/TRIMETHOPRIM 800-160 MG TABLET PO SCH ×3 (08:44→17:02)
[2021-09-22] MEDS: FERROUS SULFATE 325 MG TABLET PO SCH ×2 (08:44→17:02)
[2021-09-22] MEDS: guaiFENesin/DM ER 600-30 MG TABLET PO SCH ×2 (08:44→20:26)
[2021-09-22] MEDS: ZINC SULFATE 220 MG CAPSULE PO SCH (08:44)
[2021-09-22] MEDS ORDERED: AZITHROMYCIN INJ 500 MG in SODIUM CHLORIDE 0.9% 250 ML IV ONE (08:49)
[2021-09-22] MEDS: PANTOPRAZOLE 40 MG TABLET PO SCH ×2 (09:01→20:26)
[2021-09-22] MEDS: METOPROLOL TARTRATE 5 MG/5 ML VIAL IV PRN ×2 (09:05→20:20)
[2021-09-22] MEDS: POLYETHYLENE GLYCOL POWDER 17 GM PACK PO SCH (09:10)
[2021-09-22] MEDS: ENOXAPARIN 40 MG/0.4 ML SYRINGE SUBCUT SCH (09:10)
[2021-09-22] MEDS: FLUCONAZOLE INJ 200 MG/100 ML PREMIX IV SCH (11:28)
[2021-09-22] MEDS: DOCUSATE SODIUM 100 MG CAPSULE PO SCH ×2 (13:16→20:48)
[2021-09-22] MEDS: CHOLECALCIFEROL 5,000 UNIT TABLET PO SCH (13:54)
[2021-09-22] MEDS: MORPHINE 2 MG/1 ML SYRINGE IV PRN ×2 (15:20→20:18)
[2021-09-22 16:13] LABS: Glucose,Pleural Fluid 56 MG/DL; LDH,Body Fluid 335 U/L
[2021-09-22] MEDS: CLARITHROMYCIN 500 MG TABLET PO SCH (17:02)
[2021-09-22] MEDS: AMOXICILLIN 500 MG CAPSULE PO SCH (17:02)
[2021-09-22 17:09] LABS: Lymphocytes,Pleural Fluid 2 %; Neutrophils,Pleural Fluid 80 %; RBC,Pleural Fluid 14058 T/CUMM
[2021-09-22] MEDS: SULFAMETH IV SCH (20:08)
[2021-09-22] MEDS: DEXTROSE 5% IV SCH (20:08)
[2021-09-22] MEDS: TRIMETH IV SCH (20:08)
[2021-09-23] MEDS: oxyCODONE/ACETAMINOPHEN 5-325 MG TABLET PO PRN ×2 (00:48→23:56)
[2021-09-23] MEDS: ALBUTEROL INHALER 18 GM INH SCH ×3 (03:13→22:40)
[2021-09-23 05:07] LABS: Basophils % 0.3 % (0.0-0.8); Eosinophils % 0.5 % (0.00-10.9); Hematocrit 27.3 VOL% (42.0-52.0); Hemoglobin 8.6 GM/DL (14.0-18.0); Immature Granulocytes % 3.3 %; Immature Granulocytes Absolute 0.13 #; Lymphocytes # 0.7 10*3/uL (1.4-4.0); Lymphocytes % 16.8 % (21.2-54.2); Mean Corpuscular HGB Conc 31.5 GM/DL (32-36); Mean Corpuscular Volume 92.2 FL (87-102); Mean Platelet Volume 9.7 FL (9.6-12.0); Monocytes # 0.7 10*3/uL (0.11-0.8); Monocytes % 18.9 % (1.7-12.7); Neutrophils % 60.2 % (38.7-73.9); Platelet Count 244 T/CUMM (130-400); Red Blood Count 2.96 MC/CUMM (3.8-5.5); Red Cell Distribution Width 14.5 % (9.3-17.3); White Blood Count 3.9 T/CUMM (4-12)
[2021-09-23 05:30] LABS: Alanine Aminotransferase 20 U/L (16-61); Albumin 0.8 G/DL (3.4-5.0); Alkaline Phosphatase 452 U/L (45-117); Aspartate Amino Transferase 33 U/L (0-37); Bilirubin,Total < 0.39 MG/DL (0.20-1.00); Blood Urea Nitrogen 17 MG/DL (7-18); Calcium 8.2 MG/DL (8.5-10.1); Carbon Dioxide 19 MMOL/L (21-32); Chloride 109 MMOL/L (98-107); Glucose 105 MG/DL (74-106); Osmolality,Calculated 269.2 MOS/KG (273-304); Potassium 4.8 MMOL/L (3.5-5.1); Sodium 134 MMOL/L (136-145); Total Protein 5.3 G/DL (6.4-8.2)
[2021-09-23 05:31] LABS: Band Neutrophils 3 % (0-10); Eosinophils 2 % (0-10); Lymphocytes 7 % (20-55); Myelocytes 1 %; Total Cells Counted 100
[2021-09-23] MEDS: SODIUM CHLORIDE 0.9% 1,000 ML IV SCH ×2 (06:23→22:40)
[2021-09-23] MEDS: MYLANTA/LIDO VISC/NYST 180 ML BOTTLE SWISH/SWAL SCH ×5 (06:57→22:38)
[2021-09-23] MEDS ORDERED: SULFAMETHOX/TRIMETHOPRIM 800-160 MG TABLET PO SCH (09:00)
[2021-09-23] MEDS: guaiFENesin/DM ER 600-30 MG TABLET PO SCH ×2 (09:49→22:31)
[2021-09-23] MEDS: ZINC SULFATE 220 MG CAPSULE PO SCH (09:49)
[2021-09-23] MEDS: AMOXICILLIN 500 MG CAPSULE PO SCH ×2 (09:49→16:31)
[2021-09-23] MEDS: CLARITHROMYCIN 500 MG TABLET PO SCH ×2 (09:49→16:31)
[2021-09-23] MEDS: FERROUS SULFATE 325 MG TABLET PO SCH ×2 (09:49→16:31)
[2021-09-23] MEDS: PANTOPRAZOLE 40 MG TABLET PO SCH ×2 (09:49→22:31)
[2021-09-23] MEDS: CHOLECALCIFEROL 5,000 UNIT TABLET PO SCH (09:49)
[2021-09-23] MEDS: POLYETHYLENE GLYCOL POWDER 17 GM PACK PO SCH (09:50)
[2021-09-23] MEDS: DOCUSATE SODIUM 100 MG CAPSULE PO SCH ×3 (09:50→22:38)
[2021-09-23] MEDS: ASCORBIC ACID 500 MG TABLET PO SCH ×2 (09:54→22:31)
[2021-09-23] MEDS: ENOXAPARIN 40 MG/0.4 ML SYRINGE SUBCUT SCH (09:56)
[2021-09-23] MEDS: FLUCONAZOLE INJ 200 MG/100 ML PREMIX IV SCH (09:58)
[2021-09-23] MEDS ORDERED: AZITHROMYCIN INJ 500 MG in SODIUM CHLORIDE 0.9% 250 ML IV SCH (11:00)
[2021-09-23] MEDS ORDERED: LORazepam 2 MG/1 ML VIAL IV ONE ×2 (14:13→14:30)
[2021-09-23 22:11] LABS: Pneumocystis jiroveci Result Positive (Negative); Pneumocystis jiroveci Source sputum
[2021-09-24] MEDS: ALBUTEROL INHALER 18 GM INH SCH ×3 (00:01→15:37)
[2021-09-24] MEDS: SODIUM CHLORIDE 0.9% 1,000 ML IV SCH ×2 (00:02→08:14)
[2021-09-24 05:32] LABS: Basophils % 0.2 % (0.0-0.8); Eosinophils % 0.7 % (0.00-10.9); Hemoglobin 8.6 GM/DL (14.0-18.0); Immature Granulocytes % 5.1 %; Immature Granulocytes Absolute 0.22 #; Lymphocytes # 1.1 10*3/uL (1.4-4.0); Lymphocytes % 25.9 % (21.2-54.2); Mean Corpuscular HGB Conc 31.9 GM/DL (32-36); Mean Corpuscular Volume 91.2 FL (87-102); Mean Platelet Volume 9.4 FL (9.6-12.0); Monocytes # 0.8 10*3/uL (0.11-0.8); Monocytes % 18.9 % (1.7-12.7); Neutrophils % 49.2 % (38.7-73.9); Platelet Count 262 T/CUMM (130-400); Red Blood Count 2.96 MC/CUMM (3.8-5.5); Red Cell Distribution Width 14.3 % (9.3-17.3); White Blood Count 4.3 T/CUMM (4-12)
[2021-09-24 05:50] LABS: Alanine Aminotransferase 20 U/L (16-61); Albumin 0.9 G/DL (3.4-5.0); Alkaline Phosphatase 412 U/L (45-117); Aspartate Amino Transferase 29 U/L (0-37); Bilirubin,Total < 0.39 MG/DL (0.20-1.00); Blood Urea Nitrogen 19 MG/DL (7-18); Calcium 8.5 MG/DL (8.5-10.1); Carbon Dioxide 19 MMOL/L (21-32); Chloride 110 MMOL/L (98-107); Glucose 86 MG/DL (74-106); Potassium 4.9 MMOL/L (3.5-5.1); Sodium 136 MMOL/L (136-145); Total Protein 5.5 G/DL (6.4-8.2)
[2021-09-24 06:00] LABS: Lymphocytes 18 % (20-55); Platelet Estimate Adequate; Total Cells Counted 100
[2021-09-24 06:01] LABS: Hypochromia Slight
[2021-09-24] MEDS: AMOXICILLIN 500 MG CAPSULE PO SCH ×2 (09:50→16:03)
[2021-09-24] MEDS: CLARITHROMYCIN 500 MG TABLET PO SCH (09:50)
[2021-09-24] MEDS: PANTOPRAZOLE 40 MG TABLET PO SCH ×2 (09:50→21:58)
[2021-09-24] MEDS: PRIMAQUINE PHOSPHATE 26.3 MG TABLET PO SCH (09:50)
[2021-09-24] MEDS: ENOXAPARIN 40 MG/0.4 ML SYRINGE SUBCUT SCH (09:51)
[2021-09-24] MEDS: FLUCONAZOLE INJ 200 MG/100 ML PREMIX IV SCH (09:52)
[2021-09-24] MEDS: oxyCODONE/ACETAMINOPHEN 5-325 MG TABLET PO PRN ×2 (10:00→21:56)
[2021-09-24] MEDS: MYLANTA/LIDO VISC/NYST 180 ML BOTTLE SWISH/SWAL SCH ×3 (12:14→21:59)
[2021-09-24] MEDS: POLYETHYLENE GLYCOL POWDER 17 GM PACK PO SCH (12:15)
[2021-09-24] MEDS: DOCUSATE SODIUM 100 MG CAPSULE PO SCH ×2 (12:15→22:07)
[2021-09-24] MEDS: FERROUS SULFATE 325 MG TABLET PO SCH ×2 (12:15→16:03)
[2021-09-24] MEDS: guaiFENesin/DM ER 600-30 MG TABLET PO SCH ×2 (12:15→21:57)
[2021-09-24] MEDS: ASCORBIC ACID 500 MG TABLET PO SCH ×2 (12:15→21:58)
[2021-09-24] MEDS: CHOLECALCIFEROL 5,000 UNIT TABLET PO SCH (12:16)
[2021-09-24] MEDS: ZINC SULFATE 220 MG CAPSULE PO SCH (12:16)
[2021-09-24] MEDS: CLINDAMYCIN 300 MG CAPSULE PO SCH ×3 (12:24→21:57)
[2021-09-24] MEDS: LEVOFLOXACIN 500 MG TABLET PO SCH (12:25)
[2021-09-24] MEDS: PROMETHAZINE 25 MG TABLET PO PRN (21:57)
[2021-09-25 06:25] LABS: Eosinophils # 0.1 10*3/uL (0.0-0.87); Eosinophils % 1.6 % (0.00-10.9); Hematocrit 25.4 VOL% (42.0-52.0); Immature Granulocytes % 3.9 %; Immature Granulocytes Absolute 0.15 #; Lymphocytes # 0.8 10*3/uL (1.4-4.0); Lymphocytes % 20.5 % (21.2-54.2); Mean Corpuscular HGB Conc 31.5 GM/DL (32-36); Mean Corpuscular Volume 91.4 FL (87-102); Mean Platelet Volume 9.3 FL (9.6-12.0); Monocytes # 0.6 10*3/uL (0.11-0.8); Monocytes % 14.8 % (1.7-12.7); Neutrophils % 59.2 % (38.7-73.9); Platelet Count 232 T/CUMM (130-400); Red Blood Count 2.78 MC/CUMM (3.8-5.5); Red Cell Distribution Width 14.4 % (9.3-17.3); White Blood Count 3.9 T/CUMM (4-12)
[2021-09-25 06:45] LABS: Alanine Aminotransferase 22 U/L (16-61); Albumin 0.9 G/DL (3.4-5.0); Alkaline Phosphatase 379 U/L (45-117); Aspartate Amino Transferase 31 U/L (0-37); Bilirubin,Total < 0.39 MG/DL (0.20-1.00); Blood Urea Nitrogen 19 MG/DL (7-18); Calcium 8.4 MG/DL (8.5-10.1); Carbon Dioxide 22 MMOL/L (21-32); Chloride 111 MMOL/L (98-107); Glucose 91 MG/DL (74-106); Osmolality,Calculated 276.7 MOS/KG (273-304); Potassium 5.5 MMOL/L (3.5-5.1); Sodium 138 MMOL/L (136-145); Total Protein 5.5 G/DL (6.4-8.2)
[2021-09-25 06:59] LABS: Eosinophils 3 % (0-10); Lymphocytes 12 % (20-55); Total Cells Counted 100
[2021-09-25 07:00] LABS: Platelet Estimate Adequate
[2021-09-25] MEDS ORDERED: SODIUM POLYSTYRENE SULFATE 15 GM/60 ML BOTTLE PO STA (08:44)
[2021-09-25] MEDS: PRIMAQUINE PHOSPHATE 26.3 MG TABLET PO SCH (09:27)
[2021-09-25] MEDS: AMOXICILLIN 500 MG CAPSULE PO SCH (09:27)
[2021-09-25] MEDS: ENOXAPARIN 40 MG/0.4 ML SYRINGE SUBCUT SCH (09:27)
[2021-09-25] MEDS: LEVOFLOXACIN 500 MG TABLET PO SCH (09:27)
[2021-09-25] MEDS: CLINDAMYCIN 300 MG CAPSULE PO SCH ×2 (09:27→12:21)
[2021-09-25] MEDS: PANTOPRAZOLE 40 MG TABLET PO SCH (09:27)
[2021-09-25] MEDS: FLUCONAZOLE INJ 200 MG/100 ML PREMIX IV SCH (09:31)
[2021-09-25] MEDS: ALBUTEROL INHALER 18 GM INH SCH ×2 (09:39→09:40)
[2021-09-25] MEDS: POLYETHYLENE GLYCOL POWDER 17 GM PACK PO SCH (09:40)
[2021-09-25] MEDS: MYLANTA/LIDO VISC/NYST 180 ML BOTTLE SWISH/SWAL SCH ×2 (09:40→12:21)
[2021-09-25] MEDS: ASCORBIC ACID 500 MG TABLET PO SCH (09:40)
[2021-09-25] MEDS: FERROUS SULFATE 325 MG TABLET PO SCH (09:40)
[2021-09-25] MEDS: CHOLECALCIFEROL 5,000 UNIT TABLET PO SCH (09:40)
[2021-09-25] MEDS: DOCUSATE SODIUM 100 MG CAPSULE PO SCH (09:40)
[2021-09-25] MEDS: guaiFENesin/DM ER 600-30 MG TABLET PO SCH (09:40)
[2021-09-25] MEDS: ZINC SULFATE 220 MG CAPSULE PO SCH (09:40)
[2021-09-25 12:19] VITALS: BP 141/102
[2021-09-25 13:18] LABS: QuantiFERON-Tb Gold Pl Indeterminate (Negative); TB2 Ag Minus Result 0 IU/mL
== END 2021-09-25 12:10 | disposition home health service (06) | DRG 890 ==
LOC: N.ED 08:36 → N.EDINP 11:24 → SUATTDRO 11:24 → N.3E 09-20 00:24
PROVIDERS: ADMIT Internal Medicine; ATTEND Internal Medicine